=== PATIENT | female | born 1995 | race Two or more races ===

== ENCOUNTER 2021-11-18 19:33 | Emergency (ER) | payer OTHER ==
[~2021-11-18] VITALS: Ht 165.1 cm; Wt 49.9 kg
[2021-11-18] MEDS ORDERED: CLEOCIN HCL300 MG PO (22:54)
== END 2021-11-19 00:13 ==
LOC: ER 19:33
DX: L03.213 Periorbital cellulitis (principal); Z91.013 Allergy to seafood

== ENCOUNTER 2023-08-17 21:55 | Emergency (ER) | payer OTHER ==
[~2023-08-17] VITALS: Ht 162.6 cm; Wt 57.2 kg
[~2023-08-17 21:55] MED LIST: CLEOCIN HCL300 MG PO
[2023-08-18 02:05] LABS: MEAN CELL VOLUME 82.5 fL (80.00-100.00); MEAN CORPUSCULAR HEMOGLOBIN 27.6 pg (27.00-32.0); MEAN CORPUSCULAR HGB CONC 33.5 g/dl (32.0-36.0); PLATELET COUNT 192 K/uL (150-450); RED BLOOD COUNT 4.72 M/uL (4.00-6.00); RED CELL DISTRIBUTION WIDTH 14.6 % (11.5-14.5)
[2023-08-18] MEDS ORDERED: OSEL75CA PO (02:36)
[2023-08-18] MEDS ORDERED: ZYNCOF 20-400120 ML PO (02:36)
[2023-08-18] MEDS ORDERED: PHENAGIL TABLE1 EACH PO (02:36)
== END 2023-08-18 03:00 ==
LOC: ER
PROVIDERS: General Practice
DX: J10.1 Influenza due to other identified influenza virus with other respiratory manifestations (principal); R53.81 Other malaise; Z20.822 Contact with and (suspected) exposure to COVID-19; Z91.013 Allergy to seafood